=== PATIENT | female | born 2000 | race Caucasian/White ===

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

== ENCOUNTER 2022-08-08 15:50 | Emergency (ER) | payer OTHER, SELFPAY ==
--- NOTE | 2022-08-08 15:52 | ED.URI ---
HPI - URI/Sore Throat General Chief Complaint: Upper Respiratory Infection Stated Complaint: sore throat Time Seen by Provider: 08/08/22 15:52 Source: patient and RN notes reviewed Mode of arrival: ambulatory Limitations: no limitations History of Present Illness HPI Narrative: 20-year-old female presents concern for sore throat that started this morning. Reports she was exposed to strep. She reports some runny nose and stuffy nose. Reports body aches and chills. MD elicited complaint: cough and sore throat Related Data Allergies Allergy/AdvReac Type Severity Reaction Status Date / Time sertraline AdvReac Mild Nausea Verified 08/08/22 16:01 Review of Systems Review of Systems: CONSTITUTIONAL: Reports malaise, fever. EYES: Denies visual changes, redness, or discharge. ENT: Reports rhinorrhea, congestion, sore throat. Sinus pain, otalgia CARDIOVASCULAR: Denies chest pain, palpitations, or edema. RESPIRATORY: My cough. Denies dyspnea. GASTROINTESTINAL: Denies abdominal pain, nausea, vomiting, diarrhea SKIN: Denies rash or itching. MUSCULOSKELETAL: Reports myalgia. NEUROLOGIC: Denies headache. All systems reviewed & are unremarkable except as noted in HPI and below PMFSH Social History Social History (Updated 04/29/22 @ 10:45 by Maxine Candelaria PA-C) Smoking status: Never smoker Substance use: never Comments At time of signature, agree with nursing past medical, surgical, social and family history. There is no relevant family history pertinent to the presenting complaint Exam Narrative: GENERAL: Well-appearing, well-nourished, and in no acute distress. HEAD: Normocephalic EYES: PERRLA, conjunctivae clear ENT: Nares clear, clear discharge. Mucous membranes moist. TM pearly thurman with dull light reflex bilaterally; no tragal tenderness. Oropharynx erythematous without lesions. Tonsils enlarged and with exudate, no drooling, no hoarseness, no trismus, uvula midline. NECK: Supple. No lymphadenopathy CHEST: Clear to auscultation, breath sounds equal. No wheezing, rhonchi, rales, or stridor. No respiratory distress, speaks in full sentences. HEART: Regular rate and rhythm. No murmur heard. SKIN: Warm, dry, no rash. NEURO: Alert and oriented x3. PSYCH: Normal mood and affect Course Course Emergency Course: Patient is aware of diagnosis, understands and agrees to treatment plan. Anticipatory guidance given. Patient agrees to follow-up as directed and is aware of reasons to seek care at the emergency department. Portions of this record may have been created with voice recognition software Level of Care: Express Care Visit Vital Signs Vital signs: Reviewed. MDM - URI/Sore Throat MDM Narrative Medical decision making narrative: Differential diagnosis considered: [place] virus, strep pharyngitis, allergic rhinitis, upper respiratory tract infection, sinusitis, rhinosinusitis, nasopharyngitis. viral pharyngitis, otitis media, otitis externa, pneumonia, bronchitis, viral cough syndrome, viral syndrome, and influenza. Exam findings show no acute concerns or changes; patient is non-toxic appearing and is in no distress. Patient is appropriate for outpatient treatment and follow-up. Lab Data Attestation: I reviewed the patient's lab results. Critical Care Time Critical Care Time Critical Care Time: No Discharge Plan Discharge Clinical Impression: Strep pharyngitis Patient Disposition: Home, Self-Care Condition: Stable Instructions: Antibiotic Form, Strep Throat (ED) Additional Instructions: -Take the medication as prescribed. Throw away the toothbrush after 24hours of antibiotic. -Eat and drink things that are easy to swallow, like tea or soup, or popsicles to suck on. -Oral rinses such as: Salt water gargles and/or may use topical anesthetic (eg. Chloraseptic spray) or lozenges to relieve dryness or throat pain). -Take Tylenol and ibuprofen as needed for pain and fever as directed. -Frequent hand w
[2022-08-08 16:01] VITALS: BP 144/85; PULSE 111; RESP 16; TEMP 37.8; O2SAT 99
== END 2022-08-08 16:23 | disposition home or self-care (01) ==
PROVIDERS: Emergency Provider Nurse Practitioner
DX: J02.0 Streptococcal pharyngitis (principal); F41.9 Anxiety disorder, unspecified; F32.A Depression, unspecified
CPT/HCPCS: 87880; 99213; G0463

== ENCOUNTER 2023-07-20 10:19 | Emergency (ER) | payer OTHER, SELFPAY ==
--- NOTE | 2023-07-20 10:20 | ED.FEMALEGU ---
HPI - Female Genitourinary General Chief complaint: Urogenital-Female Stated complaint: Blood In Urine Time Seen by Provider: 07/20/23 10:28 Source: patient, RN notes reviewed and old records reviewed Mode of arrival: ambulatory Limitations: no limitations History of Present Illness HPI Narrative: 22-year-old female presents to the [facility] with complaints blood in urine, fatigue, urinary pressure, pain with urination since Wednesday or (5-6 days) of last week. Denies fevers, denies abdominal pain, nausea, vomiting or diarrhea. Has taking Tylenol as well as azo Onset (ago): day(s) (5-6) Date of Last Menstrual Period: 07/06/23 Related Data Home Medications Medication Instructions Recorded Confirmed Unknown Control 07/20/23 Allergies Allergy/AdvReac Type Severity Reaction Status Date / Time sertraline AdvReac Mild Nausea Verified 07/20/23 10:33 Review of Systems Review of Systems: All systems reviewed & are unremarkable except as noted in HPI and below Constitutional: Constitutional: Reports no additional constitutional complaints Eyes: Eyes: Reports no additional eye complaints ENT: Reports system reviewed and no additional complaints, except as documented Cardiovascular: Cardiovascular: Reports no additional cardiovascular complaints, Denies chest pain and Denies dyspnea Respiratory: Respiratory: Reports no additional respiratory complaints, Denies chest congestion, Denies cough and Denies dyspnea Gastrointestinal: Gastrointestinal: Reports no additional gastrointestinal complaints, Denies abdominal pain, Denies nausea and Denies vomiting Genitourinary: Genitourinary: Reports as per HPI Musculoskeletal: Musculoskeletal: Reports no additional musculoskeletal complaints Integumentary/Breasts: Skin/Breast: Reports system reviewed and no additional complaints, except as docu Neurologic: Reports system reviewed and no additional complaints, except as documented Psychiatric: Psychiatric: Reports no additional psychiatric complaints Allergic/Immunologic: Allergic/Immunologic: Reports no additional allergic/immunologic complaints [facility] Past Medical History Medical History (Updated 07/20/23 @ 10:44 by Martine Guzman APRN) Generalized anxiety disorder Surgical History Surgical History (Updated 07/20/23 @ 10:40 by Martine Guzman APRN) No pertinent past surgical history Family History Family History (Updated 01/13/23 @ 10:[address] CMA) Father Hypertension Social History Social History (Updated 04/29/22 @ 10:45 by Maxine Candelaria, TAYLOR) Smoking status: Never smoker Substance use: never Comments At the time of my signature, I reviewed and agree with the nursing past medical, surgical, social, and family history. There is no relevant family history pertinent to the patient complaint. Exam Const: General: cooperative, healthy appearing, comfortable, no acute distress, well developed, alert and well nourished Nutritional Appearance: well nourished Orientation/consciousness: patient oriented x3 Limitations: no limitations HENMT: Head: normal to inspection Ears: hearing grossly normal bilaterally and external ears normal Face/Nose/Sinus: Normal external nose present, Normal nares present, Normal nasal mucous membranes and turbinates present, normal facial exam and face symmetric Face and sinus: normal facial exam and face symmetric Mouth: Yes lip normal and Yes moist mucous membranes Eyes: General: appearance normal, both eyes and all related structures Alignment and Position: alignment normal Periorbital: periorbital findings normal Pupils: Equal, round and reactive pupils present EOM: EOMs intact bilaterally Neck: Neck: normal visual inspection, full ROM, no lymphadenopathy and no meningeal signs Chest: Chest palpation & inspection: normal inspection of the chest Resp: Effort & Inspection: normal respiratory effort and able to speak in complete s
[2023-07-20 10:31] VITALS: BP 134/77; PULSE 113; RESP 16; TEMP 37.3; O2SAT 100
[2023-07-20 10:35] VITALS: BP 134/77; PULSE 113; RESP 16; TEMP 37.3; O2SAT 100
== END 2023-07-20 10:48 | disposition home or self-care (01) ==
PROVIDERS: Emergency Provider Nurse Practitioner; PCP Family Medicine Adolescent Medicine
DX: N30.01 Acute cystitis with hematuria (principal); B96.89 Other specified bacterial agents as the cause of diseases classified elsewhere
CPT/HCPCS: 81003; 81025; 87077; 87086; 87186; 99213; G0463